=== PATIENT | female | born 1930 | race Caucasian/White ===

== ENCOUNTER → 2017-03-13 | Outpatient (CLI) | payer OTHER | LOC: HYPER 07:04 | DX: L89.154 Pressure ulcer of sacral region, stage 4 (principal); L89.212 Pressure ulcer of right hip, stage 2; S51.811D Laceration without foreign body of right forearm, subsequent encounter; I95.9 Hypotension, unspecified; E43 Unspecified severe protein-calorie malnutrition; J44.9 Chronic obstructive pulmonary disease, unspecified; I50.9 Heart failure, unspecified; E11.9 Type 2 diabetes mellitus without complications; G20 Parkinson's disease; I48.91 Unspecified atrial fibrillation; F03.90 Unspecified dementia, unspecified severity, without behavioral disturbance, psychotic disturbance, mood disturbance, and anxiety; Z90.710 Acquired absence of both cervix and uterus; Z98.49 Cataract extraction status, unspecified eye; X58.XXXD Exposure to other specified factors, subsequent encounter ==

== ENCOUNTER → 2017-03-20 | Outpatient (CLI) | payer OTHER | LOC: HYPER 07:05 | DX: L89.154 Pressure ulcer of sacral region, stage 4 (principal); L89.212 Pressure ulcer of right hip, stage 2; M62.81 Muscle weakness (generalized); I95.9 Hypotension, unspecified; E43 Unspecified severe protein-calorie malnutrition; J44.9 Chronic obstructive pulmonary disease, unspecified; I50.9 Heart failure, unspecified; I48.91 Unspecified atrial fibrillation; G20 Parkinson's disease; F02.80 Dementia in other diseases classified elsewhere, unspecified severity, without behavioral disturbance, psychotic disturbance, mood disturbance, and anxiety; Z90.710 Acquired absence of both cervix and uterus ==

== ENCOUNTER → 2017-03-27 | Outpatient (CLI) | payer OTHER | LOC: HYPER 07:28 | DX: L89.154 Pressure ulcer of sacral region, stage 4 (principal); L89.212 Pressure ulcer of right hip, stage 2; S51.802A Unspecified open wound of left forearm, initial encounter; F03.90 Unspecified dementia, unspecified severity, without behavioral disturbance, psychotic disturbance, mood disturbance, and anxiety; M62.81 Muscle weakness (generalized); I95.9 Hypotension, unspecified; E43 Unspecified severe protein-calorie malnutrition; J44.9 Chronic obstructive pulmonary disease, unspecified; I50.9 Heart failure, unspecified; G20 Parkinson's disease; I48.91 Unspecified atrial fibrillation; Z90.710 Acquired absence of both cervix and uterus; F02.80 Dementia in other diseases classified elsewhere, unspecified severity, without behavioral disturbance, psychotic disturbance, mood disturbance, and anxiety; X58.XXXA Exposure to other specified factors, initial encounter; Y93.89 Activity, other specified; Y92.89 Other specified places as the place of occurrence of the external cause; Y99.8 Other external cause status ==

== ENCOUNTER → 2017-04-10 | Outpatient (CLI) | payer OTHER | LOC: HYPER 07:20 | DX: S70.211D Abrasion, right hip, subsequent encounter (principal); L89.154 Pressure ulcer of sacral region, stage 4; F03.90 Unspecified dementia, unspecified severity, without behavioral disturbance, psychotic disturbance, mood disturbance, and anxiety; M62.81 Muscle weakness (generalized); I95.9 Hypotension, unspecified; E43 Unspecified severe protein-calorie malnutrition; J44.9 Chronic obstructive pulmonary disease, unspecified; I50.9 Heart failure, unspecified; I48.91 Unspecified atrial fibrillation; X58.XXXD Exposure to other specified factors, subsequent encounter ==